=== PATIENT | male | born 1980 | race Caucasian/White ===

== ENCOUNTER 2022-10-12 08:31 | Emergency (ER) | payer SELFPAY ==
[2022-10-12] MEDS ORDERED: KETOROLAC 15 MG/ML VIAL IVP STA (08:46)
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
[2022-10-12 08:58] LABS: BASOPHILS % (AUTO) 0 % (0-10); EOSINOPHILS % (AUTO) 1 % (0-10); HEMATOCRIT 41 % (40-54); LYMPHOCYTES # (AUTO) 1.4 10^3/uL (1.0-4.0); LYMPHOCYTES % (AUTO) 30 % (12-44); MEAN CORPUSCULAR HEMOGLOBIN 30 pg (25-34); MEAN CORPUSCULAR HGB CONC 35 g/dL (32-36); MEAN CORPUSCULAR VOLUME 86 fL (80-99); MEAN PLATELET VOLUME 9.5 fL (9.0-12.2); MONOCYTES # (AUTO) 0.4 10^3/uL (0.0-1.0); MONOCYTES % (AUTO) 8 % (0-12); NEUTROPHILS # (AUTO) 2.8 10^3/uL (1.8-7.8); NEUTROPHILS % (AUTO) 61 % (42-75); PLATELET COUNT 302 10^3/uL (130-400); WHITE BLOOD COUNT 4.6 10^3/uL (4.3-11.0)
--- NOTE | 2022-10-12 09:20 | Diagnostic Imaging Report ---
PROCEDURE: CT abdomen and pelvis without contrast. TECHNIQUE: Multiple contiguous axial images were obtained through the abdomen and pelvis without the use of intravenous contrast. Auto Exposure Controls were utilized during the CT exam to meet ALARA standards for radiation dose reduction. INDICATION: Epigastric pain. I have no priors. FINDINGS: There are least one stone within the gallbladder lumen, the gallbladder is nondilated, its wall non-thickened. No pericholecystic edema or fluid apparent. The unopacified liver, spleen, adrenals and pancreas appeared nonacute. The spleen size is at the upper limits of normal. No peripancreatic edema. No radiopaque urinary tract calculi are found. The appendix itself is nondilated. No convincing evidence for periappendiceal stranding or edema. No abscess, hematoma or acute fluid collection. The stomach and duodenum unremarkable. Small and large bowel unobstructed and nonacute. There are a few noninflamed sigmoid diverticula. The aorta is nonaneurysmal. There does appear to be a minute amount of pelvic free fluid probably 1 mL or less. No loculated collection. Prostate seminal vesicles and urinary bladder unremarkable. IMPRESSION: 1. Unobstructed urinary tracts. No radiopaque renal stone. Normal caliber appendix. Minute pelvic free fluid. 2. Cholelithiasis without bile duct dilatation or secondary findings of acute cholecystitis. 3. Nonfocal upper limits spleen size. 4. Clear lung bases, no acute bony pathology. Dictated by: Dictated on workstation # [id number]
[2022-10-12 09:31] LABS: BILIRUBIN,TOTAL 0.5 MG/DL (0.1-1.0); CALCIUM 9.3 MG/DL (8.5-10.1); CREATININE SERUM 0.84 MG/DL (0.60-1.30); POTASSIUM 3.7 MMOL/L (3.6-5.0); TOTAL PROTEIN 7.3 GM/DL (6.4-8.2)
[2022-10-12 09:32] LABS: ALBUMIN 3.7 GM/DL (3.2-4.5)
[2022-10-12 09:33] LABS: ATYPICAL LYMPHOCYTES 2 %; BAND NEUTROPHILS 3 %; BASOPHILS % (MANUAL) 1 %; EOSINOPHILS % (MANUAL) 0 %; LYMPHOCYTES % (MANUAL) 26 %; MONOCYTES % (MANUAL) 8 %; NEUTROPHILS % (MANUAL) 60 %
[2022-10-12 09:45] VITALS: BP 132/77
== END 2022-10-12 09:44 | disposition home or self-care (01) ==
LOC: ER FS 08:33
DX: K80.20 Calculus of gallbladder without cholecystitis without obstruction (principal); R07.2 Precordial pain; Z87.891 Personal history of nicotine dependence; Z28.310 Unvaccinated for COVID-19
CPT/HCPCS: 36415; 74176; 80053; 83690; 85007; 85027

== ENCOUNTER 2023-04-09 15:38 | Emergency (ER) | payer SELFPAY ==
[~2023-04-09] VITALS: Ht 177.8 cm; Wt 74.8 kg
[2023-04-09] MEDS ORDERED: NS IV 1000 ML 1,000 ML IV STA (15:42)
[2023-04-09] MEDS ORDERED: TETANUS,DIPTH,PERTUSS P/F (BOOSTRIX) 0.5 ML VIAL IM ONE (15:45)
[2023-04-09] MEDS ORDERED: HYDROmorphone 2 MG/ML VIAL (DILAUDID) IV ONE ×2 (15:45→17:00)
[2023-04-09] MEDS ORDERED: ONDANSETRON 4 MG/2 ML (SDV) Z0FRAN IVP ONE (15:45)
--- NOTE | 2023-04-09 15:47 | ED Lower Extremity ---
General Chief Complaint: Trauma-Non Activation Stated Complaint: LT ANKLE FX Source: patient, EMS Exam Limitations: no limitations History of Present Illness Date Seen by Provider: Apr 09, 2023 Time Seen by Provider: 15:40 Initial Comments 42-year-old male with past medical history most notable for hypertension coming in via EMS from the scene after a telephone pole log rolled onto his left ankle. He states he was given a bunch of telephone poles to build something, he was using a tractor to move them, the telephone pole was not balanced right on the forks, and it rolled off onto his left leg. After it hit his left leg, it continued to roll. He has 7 out of 10 sharp pain in his distal left mtz that is worse with movement and better with rest. EMS placed a splint and brought him here. EMS reports he was neurovascularly intact in the distal extremity. Otherwise denying any other acute complaints. Of note, his morphine allergy was related to an incident where he received quite a bit of it and had to be reminded to breathe. Allergies and Home Medications Allergies Coded Allergies: morphine (Verified Allergy, Unknown, 10/12/22) Patient Home Medication List Home Medication List Reviewed: Yes Ketorolac Tromethamine (Ketorolac Tromethamine) 10 Mg Tablet, 10 MG PO Q8H PRN for PAIN-MODERATE (5-7) Prescribed by: NATALIA GONZALEZ on 04/09/23 182 Oxycodone HCl (Oxycodone HCl) 5 Mg Tablet, 5 MG PO Q6H PRN for PAIN-MODERATE TO SEVERE Prescribed by: NATLAIA GONZALEZ on 04/09/23 1830 Review of Systems Constitutional: No fever EENTM: no symptoms reported Respiratory: no symptoms reported Cardiovascular: no symptoms reported Gastrointestinal: no symptoms reported Genitourinary: no symptoms reported Musculoskeletal: see HPI Skin: no symptoms reported Psychiatric/Neurological: No Symptoms Reported All Other Systems Reviewed Negative Unless Noted: Yes Past Vqqlnkl-Sjtgmi-Hgxwya Hx Patient Social History Tobacco Use?: No Use of E-Cig and/or Vaping dev: Yes E-Cig or Vaping type used: Nicotine Use of E-Cig and/or Vaping Fito: Current Everyday User Substance use?: No Alcohol Use?: No Pt feels they are or have been: No Immunizations Up To Date First/Initial COVID19 Vaccinat: Denies Second COVID19 Vaccination Rodrigo: Denies Third COVID19 Vaccination Date: Denies Past Medical History Surgery/Hospitalization HX: HTN; GERD; Cyst removal from face Physical Exam Vital Signs Vital Signs - First Documented 04/09/23 15:40 Temp 36.4 Pulse 131 Resp 18 B/P (MAP) 133/81 (98) Pulse Ox 97 O2 Delivery Room Air Capillary Refill : Height, Weight, BMI Height: '" Weight: lbs. oz. kg; BMI Method: General Appearance: WD/WN, mild distress HEENT: PERRL/EOMI, normal ENT inspection, pharynx normal Neck: non-tender, full range of motion, supple, normal inspection Cardiovascular: regular rate, rhythm, no edema, no murmur Respiratory: chest non-tender, lungs clear, normal breath sounds, no respiratory distress, no accessory muscle use Gastrointestinal: normal bowel sounds, non tender, soft; No distended, No guarding, No rebound Hips: bilateral hip non-tender, bilateral hip normal inspection, bilateral hip normal range of motion, bilateral hip no evidence of injury Knees: bilateral knee non-tender, bilateral knee normal inspection, bilateral knee normal range of motion, bilateral knee no evidence of injury Ankles: right ankle non-tender, right ankle normal inspection, right ankle normal range of motion, right ankle no evidence of injury; left ankle other (Swelling to the left medial malleolus, tender along the distal tibia, neurovascularly intact including normal DP PT and PT pulses, able to move toes, difficulty with plantar and dorsiflexion due to pain) Feet: bilateral foot non-tender, bilateral foot normal inspection, bilateral foot normal range of motion, bilateral foot no evidence of injury Neurologic/Tendon: normal motor functions, normal tendon functions Neurologic/Psychiatric: no motor/sensory deficits, alert Skin: normal color, warm/dry Procedures/Interventions Splinting and Joint Reduction : Pre-Proc Neuro Vasc Exam: normal Post-Proc Neuro Vasc Exam: normal Ordered: Crutches Hand-Made Type: orthoglass (and MARILEE) Splint Application: Short Leg (Posterior leg splint with U as well, bent the knee and applied pressure medially on the malleolus while dorsiflexing the ankle for reduction) Progress/Results/Core Measures Results/Orders My Orders Orders - NATALIA GONZALEZ MD Ankle 3 View Left (04/09/23 15:40) Tibia Fibula 2 View Left (04/09/23 15:40) Hydromorphone Injection (Dilaudid Inject (04/09/23 15:45) Ed Iv/Invasive Line Start (04/09/23 15:40) Dipht,Pertuss(Acell),Tet Adult (Boostrix (04/09/23 15:45) Ondansetron Injection (Zofran Injectio (04/09/23 15:45) Ns Iv 1000 Ml (Sodium Chloride 0.9%) (04/09/23 15:42) Foot 3 View Left (04/09/23 16:08) Hydromorphone Injection (Dilaudid Inject (04/09/23 17:00) Ankle 2 View Left (04/09/23 17:23) Medications Given in ED Vital Signs/I&O 04/09/23 04/09/23 15:40 17:53 Temp 36.4 Pulse 131 89 Resp 18 16 B/P (MAP) 133/81 (98) 125/83 Pulse Ox 97 94 O2 Delivery Room Air Room Air Progress Progress Note : Progress Note 42-year-old male with above history coming in after a log landed on his left leg. ABCs were intact and vitals are stable on presentation. Physical exam with left distal to mid fibular pain and medial malleolus pain, also pain over the second and third metatarsals proximally. Patient is neurovascularly intact. X-ray of the left tib-fib, ankle, and foot ordered interpreted by me showing left mid distal fibular fracture with subluxation of the tibiotalar joint as well as a fracture of the second and third metatarsal proximally. I contacted Dr. Price, we will splint the patient, I was able to reduce the joint partially. He was given Dilaudid 1 mg IV x2 for pain followed by oral medication. Prescription sent for pain medication. He will follow-up with Dr. Price as an outpatient on Tuesday. I believe he is otherwise stable for discharge with outpatient follow-up. He was sent home with strict return precautions. The patient brought crutches to use already, so does not need an extra pair from here. Diagnostic Imaging Diagonstic Imaging: Xray (left ankle/tib/fib/foot) Comments [facility] [place], [place] NAME: JUSTO VINSON [facility] REC#: [id number] PT STATUS: REG ER : 1980 PHYSICIAN: NATALIA GONZALEZ MD ADMIT DATE: 04/09/23/ER FS Draft Date of Exam:04/09/23 ANKLE 3 VIEW LEFT EXAMINATION: Left ankle 3 views. HISTORY: Leg injury. COMPARISON: None available. FINDINGS: There is disruption of the ankle mortise with widening of the syndesmosis and right lateral subluxation of the distal tibia relative to the talus and widening of the medial clear space. There is a displaced fracture of the left distal fibula. IMPRESSION: 1. Ankle mortise disruption with right lateral subluxation of the talus tibia relative to the talus and widening of the medial clear space and syndesmosis. 2. Left distal fibular fracture. Dictated on workstation # [id number] Dict: 04/09/23 1619 Trans: 04/09/23 1625 PJ [id number] Interpreted by: GALDINO GARDINER MD Electronically signed by: [facility] [place], [place] NAME: JUSTO VINSON [facility] REC#: [id number] PT STATUS: REG ER : 1980 PHYSICIAN: NATALIA GONZALEZ MD ADMIT DATE: 04/09/23/ER FS Draft Date of Exam:04/09/23 TIBIA FIBULA 2 VIEW LEFT EXAMINATION: Left tibia and fibula 2 views. HISTORY: Leg injury. COMPARISON: None available. FINDINGS: The fracture of the distal fibula which disrupts ankle mortise is again seen. No proximal tibial or fibular fracture. IMPRESSION: Unstable fracture of the left distal fibula and ankle mortise disruption. Proximal tibia and fibula are normal. Dictated on workstation # [id number] Dict: 04/09/23 1621 Trans: 04/09/23 1627 PJ [id number] Interpreted by: GALDINO GARDINER MD Electronically signed by: [facility] [employer] [place] NAME: JUSTO VINSON [facility] REC#: [id number] PT STATUS: REG ER : 1980 PHYSICIAN: NATALIA GONZALEZ MD ADMIT DATE: 04/09/23/ER FS Draft Date of Exam:04/09/23 FOOT 3 VIEW LEFT EXAMINATION: Left foot 3 views. HISTORY: Leg injury. COMPARISON: None available. FINDINGS: Unstable ankle fracture is partially imaged. There are mildly displaced fractures of the bases of the second and third metatarsals. No other fracture is seen. IMPRESSION: Mildly displaced fractures of the left second and third metatarsal bases. Dictated on workstation # [id number] Dict: 04/09/23 1629 Trans: 04/09/23 1632 [facility] [id number] Interpreted by: GALDINO GARDINER MD Electronically signed by: Departure Impression Primary Impression: Fibula fracture Qualified Codes: S82.452A - Displaced comminuted fracture of shaft of left fibula, initial encounter for closed fracture Additional Impressions: Subluxation of ankle joint Qualified Codes: S93.02XA - Subluxation of left ankle joint, initial encounter Fracture of 3rd metatarsal Qualified Codes: S92.332A - Displaced fracture of third metatarsal bone, left foot, initial encounter for closed fracture Fracture of 2nd metatarsal Qualified Codes: S92.322A - Displaced fracture of second metatarsal bone, left foot, initial encounter for closed fracture Disposition: 01 HOME, SELF-CARE Condition: Stable Departure-Patient Inst. Decision time for Depature: 17:50 Referrals: BRITTA CEDEÑO DO (PCP) Primary Care Physician JUANCARLOS PRICE MD Patient Instructions: Lower Leg Fracture ED Add. Discharge Instructions: Follow-up with Dr. Price, call his office first thing Tuesday morning. His number is in this paperwork. Take the oxycodone as needed for pain as well as the Toradol. You can also mix Tylenol with this as needed. Do not get the splint wet, do not put any weight on your foot as well. Scripts Ketorolac Tromethamine (Ketorolac Tromethamine) 10 Mg Tablet 10 MG PO Q8H PRN for PAIN-MODERATE (5-7) for 4 Days, #12 TAB Prov: NATALIA GONZALEZ MD 04/09/23 Oxycodone HCl (Oxycodone HCl) 5 Mg Tablet 5 MG PO Q6H PRN for PAIN-MODERATE TO SEVERE for 3 Days, #12 TAB Prov: NATALIA GONZALEZ MD 04/09/23 Work/School Note: Work Release Form Date Seen in the Emergency Department: Apr 09, 2023 Return to Work: Apr 12, 2023 Restrictions: No Restrictions NATALIA GONZALEZ MD Apr 09, 2023 15:47
--- NOTE | 2023-04-09 16:25 | Diagnostic Imaging Report ---
EXAMINATION: Left ankle 3 views. HISTORY: Leg injury. COMPARISON: None available. FINDINGS: There is disruption of the ankle mortise with widening of the syndesmosis and right lateral subluxation of the distal tibia relative to the talus and widening of the medial clear space. There is a displaced fracture of the left distal fibula. IMPRESSION: 1. Ankle mortise disruption with right lateral subluxation of the talus tibia relative to the talus and widening of the medial clear space and syndesmosis. 2. Left distal fibular fracture. Dictated by: Dictated on workstation # [id number]
--- NOTE | 2023-04-09 16:28 | Diagnostic Imaging Report ---
EXAMINATION: Left tibia and fibula 2 views. HISTORY: Leg injury. COMPARISON: None available. FINDINGS: The fracture of the distal fibula which disrupts ankle mortise is again seen. No proximal tibial or fibular fracture. IMPRESSION: Unstable fracture of the left distal fibula and ankle mortise disruption. Proximal tibia and fibula are normal. Dictated by: Dictated on workstation # [id number]
--- NOTE | 2023-04-09 16:33 | Diagnostic Imaging Report ---
EXAMINATION: Left foot 3 views. HISTORY: Leg injury. COMPARISON: None available. FINDINGS: Unstable ankle fracture is partially imaged. There are mildly displaced fractures of the bases of the second and third metatarsals. No other fracture is seen. IMPRESSION: Mildly displaced fractures of the left second and third metatarsal bases. Dictated by: Dictated on workstation # [id number]
[2023-04-09] MEDS ORDERED: KETO10TA PO ×2 (17:45→18:29)
[2023-04-09] MEDS ORDERED: OXYC5TAB PO ×2 (17:45→18:29)
[2023-04-09 17:53] VITALS: BP 125/83
--- NOTE | 2023-04-09 17:55 | Diagnostic Imaging Report ---
INDICATION: Fracture. FINDINGS: There is an oblique mildly comminuted fracture through the left distal fibular diaphysis. There is some lateral dislocation of the talus with respect to the distal tibia with widening of the medial ankle mortise. There is also widening of the posterior ankle mortise. Additionally, there appears to be a fracture of one of the metatarsals; however, this is difficult to visualize on this exam. IMPRESSION: Fracture dislocation of the left ankle, as described, as well as what appears to be a metatarsal fracture. Dictated by: Dictated on workstation # [id number]
== END 2023-04-09 17:54 | disposition home or self-care (01) ==
LOC: EDUNIT# 15:38 → ER FS 15:39
DX: S92.101A Unspecified fracture of right talus, initial encounter for closed fracture (principal); S82.832A Other fracture of upper and lower end of left fibula, initial encounter for closed fracture; S92.322A Displaced fracture of second metatarsal bone, left foot, initial encounter for closed fracture; S92.332A Displaced fracture of third metatarsal bone, left foot, initial encounter for closed fracture; F17.290 Nicotine dependence, other tobacco product, uncomplicated; Z28.310 Unvaccinated for COVID-19; Z88.5 Allergy status to narcotic agent; W20.8XXA Other cause of strike by thrown, projected or falling object, initial encounter
CPT/HCPCS: 29505; 73590; 73600; 73610; 73630; 90715

== ENCOUNTER 2023-04-12 05:34 | Outpatient (CLI) | payer SELFPAY ==
[~2023-04-12] VITALS: Ht 177.8 cm; Wt 75.0 kg
[~2023-04-12 05:34] MED LIST: KETO10TA PO; OXYC5TAB PO
[2023-04-12] MEDS ORDERED: SIMV10TA26 PO (09:38)
[2023-04-12] MEDS ORDERED: PANT40GR PO (09:38)
[2023-04-12] MEDS ORDERED: ACHD5005 PO (09:38)
[2023-04-12] MEDS ORDERED: CALC-233 PO (09:38)
[2023-04-12] MEDS ORDERED: LISI5TAB20 PO (09:38)
== END 2023-04-12 10:01 | disposition home or self-care (01) ==
LOC: PREOP 05:34
PROVIDERS: ATTEND Orthopaedic Surgery
DX: Z01.818 Encounter for other preprocedural examination (principal)

== ENCOUNTER 2023-04-13 09:01 | Day surgery (SDC) | payer SELFPAY ==
--- NOTE | 2023-04-11 15:28 | HISTORY AND PHYSICAL ---
This is for outpatient surgery on 04/13/2023 for internal fixation of his left fibula and syndesmosis. HISTORY: The patient is a 42-year-old gentleman who had telephone pole rolled onto his left lower extremity on Tuesday, he presented to an outside facility where he was found to have a fibular shaft fracture as well as disruption of his syndesmosis and mortise. He underwent closed reduction and splinting. Due to the unstable nature of the fracture, recommended the patient undergo operative fixation. ALLERGIES: TO MORPHINE. PAST MEDICAL HISTORY: Significant for hypertension. SOCIAL HISTORY: The patient vapes, but denies alcohol use. PAST SURGICAL HISTORY: Cyst removal from face. PHYSICAL EXAMINATION: GENERAL: The patient is well-developed, well-nourished, in no acute distress. HEENT: Normocephalic, atraumatic. Pupils equal, round, react to light. Oropharynx is clear. NECK: Supple. No lymphadenopathy. LUNGS: Clear to auscultation bilaterally. HEART: Regular rate and rhythm. ABDOMEN: Soft, nontender, nondistended. EXTREMITIES: Left lower extremity demonstrates intact dorsiflexion and plantarflexion of the toes with intact sensation to light touch. Pulses are symmetric. Radiographs reveal a Ramos type C fibula fracture with widening of the mortise and syndesmosis. PLAN: Open reduction and internal fixation of the left fibula and syndesmosis. The risks, benefits, options, ramifications and recovery were discussed at length with the patient. He understands and wishes to proceed. Job ID: [id number] DocumentID: [id number] Dictated Date: 04/11/2023 11:28:28 Retail Manager Date: 04/11/2023 12:54:00 Dictated By: JUANCARLOS TRUJILLO MD
[~2023-04-13] VITALS: Ht 177.8 cm; Wt 75.0 kg
[2023-04-13] VITALS (12 sets, daily range): BP systolic 90–147; BP diastolic 43–103
[~2023-04-13 09:01] MED LIST changes: +ACHD5005 PO; +CALC-233 PO; +LISI5TAB20 PO; +PANT40GR PO; +SIMV10TA26 PO
--- NOTE | 2023-04-13 09:10 | Progress Note-Pre Operative ---
Pre-Operative Progress Note Date of Available H&P: Apr 11, 2023 Date H&P Reviewed: Apr 13, 2023 Time H&P Reviewed: 09:10 Changes from last HP none Pre-Operative Diagnosis: left fibula shaft fracture with syndesmosis disruption JUANCARLOS TRUJILLO MD Apr 13, 2023 09:10
--- NOTE | 2023-04-13 09:11 | Progress Note-Post Operative ---
Post-Operative Progess Note Surgeon (s)/Beef Skinner (s) Surgeon JUANCARLOS TRUJILLO MD Beef Skinner: Skip Ramírez Pre-Operative Diagnosis left fibula shaft fracture with syndesmosis disruption Post-Operative Diagnosis left fibula shaft fracture with syndesmosis disruption Procedure & Operative Findings Date of Procedure 04/13/23 Procedure Performed/Findings ORIF left fibula shaft and syndesmosis Anesthesia Type GETA Estimated Blood Loss Estimated blood loss (mL): minimal Specimens/Packing Specimens Removed none Packing: none JUANCARLOS TRUJILLO MD Apr 13, 2023 09:11
[2023-04-13] MEDS ORDERED: ceFAZolin INJECTION 1,000 MG in NS (IVPB) 50 ML IV ONE (09:15)
[2023-04-13] MEDS ORDERED: HYDROcodone/APAP 7.5 MG/325 MG (LORTAB, LORCET PLUS) TABLET PO PRN (09:30)
[2023-04-13] MEDS: LACTATED RINGERS 1,000 ML IV PRN ×2 (09:44→12:25)
[2023-04-13] MEDS ORDERED: MIDAZOLAM 2 MG/2 ML (VERSED) VIAL ONE (11:36)
[2023-04-13] MEDS ORDERED: proPOfol 200 MG/20 ML (DIPRIVAN) VIAL IV ONE ×2 (11:36→12:06)
[2023-04-13] MEDS ORDERED: fentaNYL INJ 100 MCG/2 ML AMP ONE ×3 (11:36→13:32)
[2023-04-13] MEDS ORDERED: LIDOCAINE PF 2% 5 ML (XYLOCAINE) VIAL ONE (11:36)
[2023-04-13] MEDS ORDERED: SEVOFLURANE (ULTANE) 15 ML INHAL SOLN ONE ×2 (11:36→12:48)
[2023-04-13] MEDS ORDERED: ONDANSETRON 4 MG/2 ML (SDV) Z0FRAN ONE (11:36)
[2023-04-13] MEDS ORDERED: BUPIVACAINE 0.5% 30 ML (SENSORCAINE) VIAL ONE (11:45)
--- NOTE | 2023-04-13 13:12 | Anesthesia-General Post-Op ---
General Patient Condition Mental Status/LOC: Same as Preop Cardiovascular: Satisfactory Nausea/Vomiting: Absent Respiratory: Satisfactory Pain: Controlled Complications: Absent Post Op Complications Complications None Follow Up Care/Instructions Patient Instructions None needed. Anesthesia/Patient Condition Patient Condition Patient is doing well, no complaints, stable vital signs, no apparent adverse anesthesia problems. No complications reported per nursing. JAYSON LARA CRNA Apr 13, 2023 13:12
[2023-04-13] MEDS ORDERED: ONDANSETRON 4 MG/2 ML (SDV) Z0FRAN IVP PRN (13:15)
[2023-04-13] MEDS ORDERED: fentaNYL INJ 100 MCG/2 ML AMP IVP ONE (13:15)
[2023-04-13] MEDS ORDERED: HYDROcodone/APAP 7.5 MG/325 MG (LORTAB, LORCET PLUS) TABLET PO ONE (14:14)
--- NOTE | 2023-04-13 16:56 | Diagnostic Imaging Report ---
INDICATION: Left ankle fracture/dislocation. TECHNIQUE: Two views were obtained with the portable intensifier in Surgery during ORIF of the left ankle. FINDINGS: Plate and screws are seen fusing the distal fibular fracture in anatomic alignment. There are anchor devices seen across the distal tibia and fibula with improved alignment of the ankle mortise compared to the prior study. 30.4 seconds of fluoroscopy time was used. 0.69 mGy exposure. IMPRESSION: Intraoperative views show anatomic alignment post-ORIF of the left ankle. Dictated by: Dictated on workstation # [id number]
--- NOTE | 2023-04-14 00:24 | OPERATIVE REPORT ---
DATE OF SERVICE: 04/13/2023 PREOPERATIVE DIAGNOSES: 1. Left fibula shaft fracture. 2. Left syndesmosis disruption. POSTOPERATIVE DIAGNOSES: 1. Left fibula shaft fracture. 2. Left syndesmosis disruption. PROCEDURES: 1. Open reduction and internal fixation of the left fibula shaft. 2. Left syndesmosis fixation. SURGEON: Ariel Trujillo MD PRODUCTION WELDING SUPERVISOR: ILENE Sexton, who assisted throughout the procedure and closed the incision. ANESTHESIA: General endotracheal by Skip Caban CRNA. TOURNIQUET TIME: Approximately 37 minutes at 300 mmHg. ESTIMATED BLOOD LOSS: Minimal. DRAINS: None. COMPLICATIONS: None. MATERIALS: Synthes 7-hole one-third tubular plate and two Arthrex TightRopes through a 2-hole plate. The patient was transferred to recovery room in awake and stable condition. POSTOPERATIVE PLAN: Toe touch weightbearing left lower extremity. STATEMENT OF MEDICAL NECESSITY: The patient is a 42-year-old gentleman who sustained an injury to his left leg when he slipped on some telephone poles and rolled. He was found to have a distal fibula shaft fracture with disruption of his mortise and syndesmosis. The patient was counseled regarding treatment options but due to the unstable nature of the fracture, it was recommended the patient should undergo operative fixation. DESCRIPTION OF PROCEDURE: After risks and benefits of the procedure were discussed and questions were answered and informed consent was signed and placed on the chart, the operative site was confirmed in the preoperative holding area initialed by the surgeon. The patient was then transferred to the operating room and after adequate levels of general endotracheal anesthetic were obtained, a timeout was called confirming the operative site. The left lower extremity was prepped and draped in the usual sterile fashion. An incision was made over the fracture site. The underlying soft tissues were carefully dissected. The fracture site was exposed and reduced anatomically. A 7-hole one-third tubular plate was placed with three cortical screws proximally and three cortical screws distally, all with excellent purchase. Fluoroscopy in the AP and lateral planes revealed anatomic reduction of the fracture with well placed hardware. The incision was then extended distally and under fluoroscopic guidance, two Arthrex TightRopes were placed with the ankle held in neutral dorsiflexion. These were passed through a 2-hole plate. Fluoroscopy in the AP, lateral and oblique planes revealed anatomic reduction of the syndesmosis and mortise with well placed hardware. The ankle was then stressed under live-time fluoroscopy with no widening of the mortise or syndesmosis noted. The wound was copiously irrigated. A 0 Vicryl was used for the deep subcutaneous layer, 2-0 Vicryl for the superficial subcutaneous layer and janeth used on the skin. A soft dressing and boot were applied after infiltrating the incision with Marcaine. The tourniquet was deflated. The patient was transferred to recovery room in awake and stable condition. Job ID: [id number] DocumentID: [id number] Dictated Date: 04/13/2023 13:04:47 Gluer Date: 04/13/2023 18:21:00 Dictated By: ARIEL TRUJILLO MD
== END 2023-04-13 15:20 | disposition home or self-care (01) ==
LOC: SDC 09:01
PROVIDERS: ATTEND Orthopaedic Surgery
DX: S82.402A Unspecified fracture of shaft of left fibula, initial encounter for closed fracture (principal); S93.432A Sprain of tibiofibular ligament of left ankle, initial encounter; W18.41XA Slipping, tripping and stumbling without falling due to stepping on object, initial encounter; K21.9 Gastro-esophageal reflux disease without esophagitis; F17.290 Nicotine dependence, other tobacco product, uncomplicated; Z28.310 Unvaccinated for COVID-19
CPT/HCPCS: 27784; 27829; 76000; 87081; C1713 ×4